=== PATIENT | female | born 1975 | race African-American/Black ===

== ENCOUNTER 2018-02-24 17:32 | Emergency (ER) | payer SELFPAY ==
[~2018-02-24] VITALS: Ht 152.4 cm; Wt 54.4 kg
--- NOTE | 2018-02-24 18:12 | Emergency Room Report ---
History of Present Illness General Chief Complaint: Lower Extremity Injury Source: Patient Present Illness HPI 42-year-old female patient presents ER complaining of left middle toe pain. States she stubbed it while at [employer]. Reports pain with walking. Reports "I think the nail ripped back". Reports skin at base of nail is "torn" . Reports up to date on tetanus vaccination. Denies fever, chest pain, shortness of breath. Allergies: Coded Allergies: No Known Allergies (Unverified , 02/24/18) Patient History Past Medical History: see triage record Last Menstrual Period: 02-10 Now: No Reviewed Nursing Documentation: PMH: Agreed; PSxH: Agreed Nursing Documentation-PMH Past Medical History: No Stated History Review of Systems All Other Systems: negative except mentioned in HPI Physical Exam Vital Signs Date Time Temp Pulse Resp B/P (MAP) Pulse Ox O2 Delivery O2 Flow Rate FiO2 02/24/18 17:48 98.1 80 18 112/51 98 Room Air Sp02 EP Interpretation: reviewed, normal General Appearance: well appearing, no apparent distress, alert, GCS 15, non- toxic Head: normocephalic, atraumatic Eyes: bilateral eye normal inspection, bilateral eye PERRL ENT: hearing grossly normal, normal pharynx, no angioedema, normal voice, uvula midline, moist mucus membranes Neck: full range of motion Respiratory: lungs clear, normal breath sounds, no rhonchi, no respiratory distress, no accessory muscle use, no wheezing, speaking full sentences Cardiovascular #1: regular rate, rhythm, no edema Cardiovascular #2: 2+ dorsalis pedis (R), 2+ dorsalis pedis (L) Musculoskeletal: back normal, gait/station normal, normal range of motion, other - left foot third nail: partial nail avulsion, no nailbed damage, cuticle partially damaged, no surrounding erythema or edema, cap refill <2seconds, sensation intact to light touch, tender Neurologic: alert, oriented x3, responsive, motor strength/tone normal, sensory intact Psychiatric: mood/affect normal Skin: no rash Medical Decision Making PA Attestation Dr. Flores is my supervising Physician whom patient management has been discussed with. Diagnostic Impression: Primary Impression: Nail avulsion of toe ER Course Pt. presents to the ED c/o toe pain. Ddx considered but are not limited to ingrown toenail, nail avulsion, paronychia , felon, cellulitis, tinea unguinum. Vital signs: are WNL, pt. is afebrile ER COURSE: Physical exam shows: partially avulsed toenail without nailbed damage or laceration. consult with machinist wood Dr. Chang, who is kind enough to consult on this case. See his procedure note. Followup with machinist wood in 1 week, provided with contact information for machinist wood, contact to schedule appt. ER precautions given. Wound cleaned and dressed with Bacitracin and sterile gauze. Open toed shoe provided. Declined crutches. DISCHARGE: Rx provided for Keflex Rx provided for Bacitracin Rx provided for Tylenol #3 CURES reviewed. SE drowsiness, do not take prior to drinking, driving, operating heavy machinery. At this time pt is stable for d/c to home. Patient is resting comfortably, in no acute distress, nontoxic appearing, talking without difficulty. Patient to take medications as instructed Will provide with patient care instructions and any necessary prescriptions. Care plan and follow-up instructions provided. Patient instructed to follow-up with primary care provider in 3 - 5 days. Patient questions asked and answered. Patient reports understanding and agreement to treatment plan. ER precautions given. Patient instructed to return to ER immediately for any new or worsening of symptoms including but not limited to increasing SOB, persistent fever, chest pain, intractable vomiting. - Please note that this Emergency Department Report was dictated using [employer] department manager technology software, occasionally this can lead to erroneous entry secondary to interpretation by the dictation equipment. Other X-Ray Diagnostic Results Other X-Ray Diagnostic Results : X-Ray ordered: left foot # of Views/Limited Vs Complete: 3 View Indication: Pain EP Interpretation: Yes PA Xray: Interpretation reviewed, by supervising MD, and agrees with findings. Interpretation: no dislocation, no soft tissue swelling, no fractures Impression: No acute disease GIAN Scribe Text James Doyle PA-C Last Vital Signs Date Time Temp Pulse Resp B/P (MAP) Pulse Ox O2 Delivery O2 Flow Rate FiO2 02/24/18 17:48 98.1 80 18 112/51 98 Room Air Status: improved Disposition: HOME, SELF-CARE Condition: Stable Scripts Acetaminophen With Codeine (T#3) (TYLENOL #3 TAB*) Y Tab 1 TAB ORAL Q6HR PRN for For Pain, #15 TAB Prov: Ricco Doyle 02/24/18 Cephalexin* (KEFLEX*) 500 Mg Capsule 500 MG ORAL EVERY 12 HOURS, #14 CAP 0 Refills Prov: Ricco Doyle 02/24/18 Bacitracin/Polymyxin B Sulfate (BACITRACIN-POLYMYXIN OINTMENT) 28.35 Gm Oint...g. 1 APPLIC TP BID, #28 GM Prov: Ricco Doyle 02/24/18 Patient Instructions: Nail Avulsion Additional Instructions: Follow machinist wood in one week. Call to schedule appointment. Followup with primary care provider in 3 -5 days. Take medications as directed. Patient questions asked and answered. ER precautions given, patient instructed to return to ER immediately for any new or worsening of symptoms. Ricco Dyole Feb 24, 2018 18:12
[2018-02-24] MEDS ORDERED: Lidocaine 1% Plain 30 ml INJ ONE (18:15)
[2018-02-24] MEDS ORDERED: Acetaminophen 500mg (ES) tab ORAL ONE (18:15)
[2018-02-24] MEDS ORDERED: Bacitracin Oint UD TOPIC ONE (18:15)
[2018-02-24] MEDS ORDERED: CEPHALEXIN500 MG ORAL (18:52)
[2018-02-24] MEDS ORDERED: BACITRACIN-P28.35 GM TP (18:52)
[2018-02-24] MEDS ORDERED: ACETAMINOPHEN-1 EAC1 ORAL (18:52)
[2018-02-24 18:54] VITALS: BP 112/51
--- NOTE | 2018-02-24 22:00 | Consultation ---
DATE OF CONSULTATION: 02/24/2018 3546CONSULTING PHYSICIAN: Christopher Chang M.D. SUBJECTIVE: This is a kind 42-year-old female who was at [facility] and states that she was walking from one rack to search to another one to it, and states that she stepped her toe on the bottom part of the clothing rack that was not supposed to be there. She states there was immediate pain and sensitivity noted to the left third toe. She states that the nail was loose immediately and was bleeding. She denies any falls. Denies any constitutional symptoms at this time. She states that it happened about 1:45 to 2 p.m. today. PAST MEDICAL HISTORY: Unknown. PAST SURGICAL HISTORY: [place] tooth extraction and . ALLERGIES: No known drug allergies. FAMILY HISTORY: Noncontributory. REVIEW OF SYSTEMS: Erythema, pain and stiffness noted to the left third toe. PHYSICAL EXAMINATION: AAO x3. NAD. Pulses are 2/4 DP and PT pulses. Cap refill time less than 3 seconds. Gross sensation is intact to the left third toe. There is no necrosis noted to the left third toe. Adequate blood flow noted. There is a loosening of the nail plate 90% only. The proximal margin is intact; however, there is no laceration underneath the nail plate and the nail bed is completely intact. There is no exposure of bone. Beneath the nail plate, the nail bed is granular and healthy and there is no apparent drainage. There is fusiform edema to the left third toe and pain noted. She is able to move all toes of the left third toe. Sensation is intact to left third toe. ASSESSMENT: 1. Trauma, left third toe. 2. Avulsion of the left third toe secondary to trauma without laceration. 3. Pain, left toe. PLAN: We obtained consent and I performed a total nail avulsion to the left third toe. I anesthetized by using 3 mL of 1% lidocaine plain to the left third toe. I prepped it with Betadine. I used a and I removed the nail plate. It was then flushed with normal saline and Betadine again. And then covered it with triple antibiotic, Xeroform, 4 x 4 and tape. She is to change this every day with antibiotic ointment and I will give her one week of Keflex 500 mg twice a day, #14. I discussed with the PA James to prescribe her Tylenol No. 3 every 4 to 6 hours p.r.n. pain and give her no more than 20. She will be walking protected weightbearing left foot in a surgical shoe. Keep left foot clean and dry. Okay to shower and get the left foot wet this weekend. Elevate left foot at nighttime. Discussed that the nail may grow back a little bit thicker than usual. Discussed she may make a follow-up appointment to see me in two weeks. Christopher Chang M.D. DR: JOSIANE JOB#: [id number] CC:
--- NOTE | 2018-02-25 09:59 | Diagnostic Imaging Report ---
Indication: Foot pain Technique: 3 views left foot Comparison: none Findings: No acute fractures. No dislocations. The joint spaces are preserved. Impression: No acute process
== END 2018-02-24 19:07 | disposition home or self-care (01) ==
LOC: EMR 17:56
DX: S91.205A Unspecified open wound of left lesser toe(s) with damage to nail, initial encounter (principal); W22.8XXA Striking against or struck by other objects, initial encounter; Y92.512 Supermarket, store or market as the place of occurrence of the external cause
CPT/HCPCS: 11730; 73630; 99283; J2001